=== PATIENT | female | born 2000 | race Two or more races ===

== ENCOUNTER 2019-03-15 10:20 | Outpatient (CLI) | payer OTHER | END 2019-03-15 10:30 | disposition home or self-care (01) | LOC: LAB 10:20 | DX: N39.0 Urinary tract infection, site not specified (principal); D50.9 Iron deficiency anemia, unspecified; D50.8 Other iron deficiency anemias; E83.51 Hypocalcemia; E03.8 Other specified hypothyroidism ==

== ENCOUNTER 2019-03-15 11:52 | Outpatient (CLI) | payer OTHER | END 2019-03-15 15:22 | disposition home or self-care (01) | LOC: SONOGRAMA 11:52 | DX: R10.2 Pelvic and perineal pain (principal) ==